=== PATIENT | female | born 1990 | race Caucasian/White ===

== ENCOUNTER 2016-12-05 23:58 | Emergency (ER) | payer OTHER ==
[~2016-12-05] VITALS: Ht 165.1 cm; Wt 127.0 kg
[2016-12-06 00:07] VITALS: BP 133/94
[2016-12-06] MEDS ORDERED: Metoclopramide 10mg/2ml Inj IVP ONE (00:30)
[2016-12-06] MEDS ORDERED: Ketorolac 30mg Inj IV ONE (00:30)
[2016-12-06] MEDS ORDERED: DiphenhydrAMINE 50mg/ml Inj IVP ONE (00:30)
[2016-12-06] MEDS ORDERED: ANAPROX DS550 MG PO (01:20)
--- NOTE | 2016-12-06 01:20 | Emergency Room Report ---
History of Present Illness General Chief Complaint: Headache Source: Patient Present Illness HPI Is a 26-year-old female with a history headache/migraine. She get them about once or twice a week. Her Dr. gave her medicine but she stopped taking them. Denies any fever chills denies any nausea vomiting. This pain came on tonight. Pain is 10 out of 10. She normally get any scotoma with it. Lights bother her. Sounds bilaterally. This one is in the same location but more severe. Gradual onset. Pain is 10 out of 10. Has not take anything for it. Allergies: Coded Allergies: No Known Allergies (Unverified , 12/06/16) Patient History Past Medical History: see triage record, old chart reviewed Past Surgical History: none Pertinent Family History: none Social History: Denies: smoking Last Menstrual Period: 1 year ago Now: No Immunizations: other Reviewed Nursing Documentation: PMH: Agreed, PSxH: Agreed Review of Systems Eye: Denies: blurred vision, eye pain ENT: Denies: ear pain, nose congestion, throat swelling Respiratory: Denies: cough, shortness of breath Cardiovascular: Denies: chest pain, palpitations Gastrointestinal: Denies: abdominal pain, diarrhea, nausea, vomiting Musculoskeletal: Denies: back pain, joint pain Skin: Denies: rash Neurological: Reports: headache, Denies: numbness Endocrine: Denies: increased thirst, increased urine Hematologic/Lymphatic: Denies: easy bruising All Other Systems: negative except mentioned in HPI Physical Exam Vital Signs Date Time Temp Pulse Resp B/P Pulse Ox O2 Delivery O2 Flow Rate FiO2 12/06/16 00:00 98.2 94 18 133/94 95 Room Air vitals normal Sp02 EP Interpretation: reviewed, normal General Appearance: well appearing, no apparent distress, alert Head: normocephalic, atraumatic Eyes: bilateral eye EOMI, bilateral eye PERRL ENT: hearing grossly normal, normal pharynx Neck: full range of motion, supple, no meningismus Respiratory: chest non-tender, lungs clear, normal breath sounds Cardiovascular #1: regular rate, rhythm, no murmur Gastrointestinal: normal bowel sounds, non tender, no mass, no organomegaly, no bruit, non-distended Musculoskeletal: back normal, gait/station normal, normal range of motion Psychiatric: mood/affect normal Skin: warm/dry Medical Decision Making Diagnostic Impression: Primary Impression: Headache Qualified Codes: R51 - Headache ER Course Patient presents with headache. Most likely migraine. No evidence of bleed or meningitis. We'll discharge home. I recommend followup with a neurologist for migraine specialist. Last Vital Signs Date Time Temp Pulse Resp B/P Pulse Ox O2 Delivery O2 Flow Rate FiO2 12/06/16 01:03 98.2 12/06/16 00:07 18 133/94 95 Room Air 12/06/16 00:00 94 Status: improved Disposition: HOME, SELF-CARE Condition: Stable Scripts Naproxen Sodium (ANAPROX DS) 550 Mg Tablet 550 MG PO BID, #30 TAB Prov: TG ESTEVEZ M.D. 12/06/16 Referrals: NOT CHOSEN [facility]/,REFERRING (PCP) Patient Instructions: Migraine Headache Additional Instructions: followup with your DrHoracio in 2-3 days. Return if worse. TG ESTEVEZ M.D. Dec 06, 2016 01:20
[2016-12-06 01:45] VITALS: BP 137/90
== END 2016-12-06 01:45 | disposition home or self-care (01) ==
LOC: EMR 12-06 00:41
DX: R51 Headache (principal)
CPT/HCPCS: 96374; 96375; 99284; J1200; J1885; J2765

== ENCOUNTER 2018-08-21 22:57 | Emergency (ER) | payer MEDICAID, OTHER ==
[~2018-08-21] VITALS: Ht 165.1 cm; Wt 136.5 kg
[~2018-08-21 22:57] MED LIST: ANAPROX DS550 MG PO
[2018-08-21] MEDS ORDERED: NKM (23:01)
--- NOTE | 2018-08-21 23:04 | NUR ---
ED Nurse Note: pt walked in c/o left lower back pain radiating to left leg and pelvic area, pt states pain is sharp, 10/10, started about 30min ago. pt reports +nausea, had 1 vomiting episode in ED. No blood in emesis noted. ERMD notified regarding pt's condition. pt AA&ox4, gcs=15, skin warm and dry, resp even and unlabored on RA, airway intact, +n/v/d, active BS, vss, will cont monitor.
[2018-08-21 23:17] VITALS: BP 133/63
--- NOTE | 2018-08-21 23:27 | Emergency Room Report ---
History of Present Illness General Chief Complaint: Pain Source: Patient Present Illness HPI Is a 28-year-old female with no significant past medical history. She presents with chief complaint of left lower back pain. Onset was acute and occurred about an hour ago. She was in bed and she stretched she felt sharp pain. No radiation. Worse with palpation. Pain is 9 out of 10. Has nausea and vomiting. No diarrhea. No fever or chills. Pain is sharp. No hematuria. Allergies: Coded Allergies: No Known Allergies (Unverified , 12/06/16) Patient History Past Medical History: none, see triage record, old chart reviewed Past Surgical History: none Pertinent Family History: none Social History: Denies: smoking Last Menstrual Period: currently on it Now: No Immunizations: other Reviewed Nursing Documentation: PMH: Agreed; PSxH: Agreed Nursing Documentation-PMH Past Medical History: No History, Except For Review of Systems Eye: Denies: eye pain, blurred vision ENT: Denies: ear pain, nose congestion, throat swelling Respiratory: Denies: cough, shortness of breath Cardiovascular: Denies: chest pain, palpitations Gastrointestinal: Denies: abdominal pain, diarrhea, nausea, vomiting Musculoskeletal: Reports: back pain; Denies: joint pain Skin: Denies: rash Neurological: Denies: headache, numbness Endocrine: Denies: increased thirst, increased urine Hematologic/Lymphatic: Denies: easy bruising All Other Systems: negative except mentioned in HPI Physical Exam Vital Signs Date Time Temp Pulse Resp B/P (MAP) Pulse Ox O2 Delivery O2 Flow Rate FiO2 08/21/18 22:58 99.0 99 18 122/63 97 Room Air vitals normal Sp02 EP Interpretation: reviewed, normal General Appearance: well appearing, no apparent distress, alert, obese Head: normocephalic, atraumatic Eyes: bilateral eye PERRL, bilateral eye EOMI ENT: hearing grossly normal, normal pharynx Neck: full range of motion, supple, no meningismus Respiratory: chest non-tender, lungs clear, normal breath sounds Cardiovascular #1: regular rate, rhythm, no murmur Gastrointestinal: normal bowel sounds, non tender, no mass, no organomegaly, no bruit, non-distended Musculoskeletal: back normal - Tenderness to left flank, lower lumbar area, gait/station normal, normal range of motion Psychiatric: mood/affect normal Skin: warm/dry Medical Decision Making Diagnostic Impression: Primary Impression: Back pain Qualified Codes: M54.5 - Low back pain Additional Impression: Pelvic mass in female ER Course Sent with back pain. No evidence of cauda equina syndrome, spinal after abscess or neoplastic process. She does have a large pelvic/abdominal mass. This may be a fibroid uterus. Patient said that her menstrual flow is very heavy and prolonged period. There is no abnormal weight loss. We'll discharge home with gynecology follow-up for further workup. CT/MRI/US Diagnostic Results CT/MRI/US Diagnostic Results : Imaging Test Ordered: CT abdomen and pelvis Impression read by radiologist. Large abdominal/pelvic mass. Measured 23 cm x 24 cm x 15 cm. Last Vital Signs Date Time Temp Pulse Resp B/P (MAP) Pulse Ox O2 Delivery O2 Flow Rate FiO2 08/21/18 23:17 99.0 91 18 133/63 99 Room Air Status: improved Disposition: HOME, SELF-CARE Condition: Stable Scripts Diazepam* (VALIUM*) 10 Mg Tablet 10 MG ORAL TID PRN for spasm, #20 TAB 0 Refills Prov: Angel Eng MD 08/22/18 Ibuprofen* (MOTRIN*) 600 Mg Tablet 600 MG ORAL THREE TIMES A DAY, #30 TAB 0 Refills Prov: Angel Eng MD 08/22/18 Hydrocodone/Acetaminophen 5-325* (HYDROCODONE/ACETAMINOPHEN 5-325*) 1 Each Tablet 1 TAB ORAL Q6H PRN for For Pain, #20 TAB 0 Refills Prov: Angel Eng MD 08/22/18 Additional Instructions: Follow-up with your doctor in 7 days. You will need a referral to see a full time paramedic. You have a large pelvic mass. this will need further workup. Return if symptom worsen. Angel Eng MD Aug 21, 2018 23:27
[2018-08-21] MEDS ORDERED: HYDROmorphone 1mg/ml Carpuject IVP ONE (23:30)
[2018-08-21 23:53] LABS: APPEARANCE,URINE CLEAR; BILIRUBIN, URINE NEGATIVE (NEGATIVE); COLOR,URINE PALE YELLOW; GLUCOSE, URINE (UA) NEGATIVE (NEGATIVE); KETONES,URINE NEGATIVE (NEGATIVE); LEUKOCYTE ESTERASE ,URINE 1+ (NEGATIVE); NITRITE,URINE NEGATIVE (NEGATIVE); PH,URINE 6 (4.5-8.0); PROTEIN,URINE 2+ (NEGATIVE); UROBILINOGEN,URINE NORMAL MG/DL (0.0-1.0)
[2018-08-22] MEDS ORDERED: IBUPROFEN600 MG ORAL (00:59)
[2018-08-22] MEDS ORDERED: HYDROCODON-ACE1 EA15 ORAL (00:59)
[2018-08-22] MEDS ORDERED: VALIUM10 MG ORAL (00:59)
--- NOTE | 2018-08-22 01:11 | NUR ---
ED Nurse Note: pt cleared to be d/c per ERMD, pt discharge and aftercare instruction provided w/ prescription, pt education done via discussion and handout, pt advised to follow up with pcp or return to ed if sx worsen or new sx develop, pt verbalized understanding and agrees with plan, vss, ambulatory w/ steady gait, left w/ all belongings. iv d/c and ID band removed. pt was accompanied by mother.
[2018-08-22 01:15] VITALS: BP 123/81
--- NOTE | 2018-08-22 09:24 | Diagnostic Imaging Report ---
Indication: Abdominal pain for one day Technique: Spiral acquisitions obtained through the abdomen and pelvis. No oral contrast utilized, per emergency room physician request No IV contrast utilized, per emergency room physician request.. Multiplanar reconstructions were generated. Total dose length product 1110.89 mGycm. CTDIvol(s) 19.51 mGy. Dose reduction achieved using automated exposure control Comparison: None Findings: There is a very large unilocular cyst in the pelvic and lower abdominal midline. This measures 23.4 cm transverse by 14.6 cm AP by 24 cm craniocaudad. This appears to be related to both adnexa . However, it displaces the uterus to the left, indicating most likely right ovarian origin the uterus is normal, contains an intrauterine device. Lack of IV contrast limits assessment of the solid organs. The liver, gallbladder, bile ducts, pancreas, spleen, adrenals, kidneys are all unremarkable. No retroperitoneal or mesenteric mass or adenopathy. Unremarkable bladder. Lack of enteric contrast limits assessment of the GI tract. There are sigmoid diverticula. The appendix is not definitely visualized. No findings to suggest acute appendicitis are evident. No small bowel distention. No free or loculated intraperitoneal gas or fluid is evident. The included lung bases are clear. The bones are unremarkable. Impression: 23.4 x 14.6 x 24 cm unilocular cystic mass in the pelvis, presumably a cyst of ovarian, probably right ovarian, origin. Suspicious for neoplastic etiology, given large size. Gynecological evaluation is recommended Intrauterine device in place Sigmoid diverticulosis. This agrees with the preliminary interpretation provided overnight by [facility], with minor variation. The CT scanner at [facility] is accredited by the [employer] and the scans are performed using protocols designed to limit radiation exposure to as low as reasonably achievable to attain images of sufficient resolution adequate for diagnostic evaluation.
== END 2018-08-22 01:16 | disposition home or self-care (01) ==
LOC: EMR 23:30
DX: M54.5 Low back pain (principal); R19.00 Intra-abdominal and pelvic swelling, mass and lump, unspecified site; K57.90 Diverticulosis of intestine, part unspecified, without perforation or abscess without bleeding; Z97.5 Presence of (intrauterine) contraceptive device
CPT/HCPCS: 74176; 81003; 81025; 87086; 96374; 96375; 99284; J1170; J2405

== ENCOUNTER 2020-03-27 23:57 | Emergency (ER) | payer MEDICAID ==
[~2020-03-27] VITALS: Ht 165.1 cm; Wt 104.3 kg
[~2020-03-27 23:57] MED LIST changes: +HYDROCODON-ACE1 EA15 ORAL; +IBUPROFEN600 MG ORAL; +NKM; +VALIUM10 MG ORAL
--- NOTE | 2020-03-28 00:40 | NUR ---
ED Nurse Note: Recieved pt wak in from home, here with c/o severe 9/10 back pain x 1 week, pt has hx of ovarian cancer, not currently under treatment, pt also states she has to defecate each time she urinates with pain, denies injury to area or fall, no cp, sob, or labored breathing, pt crying due to pain.
[2020-03-28] MEDS ORDERED: cefTRIAXone 2 GM in NS 110 ML IV ONE (00:45)
[2020-03-28] MEDS ORDERED: Gadavist 7.5mMol/7.5ml vial IV PRN ×2 (00:45)
[2020-03-28] MEDS ORDERED: Methocarbamol 750mg tab ORAL ONE (01:00)
[2020-03-28] MEDS ORDERED: DiphenhydrAMINE 50mg/ml Inj IVP ONE ×2 (01:45→03:00)
[2020-03-28] MEDS ORDERED: Solu-MEDROL 125mg Inj IVP ONE ×2 (01:45→03:00)
[2020-03-28 01:57] LABS: BASOPHILS % (AUTO) 1.2 % (0.0-2.0); EOSINOPHILS % (AUTO) 4.8 % (0.0-3.0); HEMATOCRIT 44.6 % (37.0-47.0); HEMOGLOBIN 14.4 G/DL (12.0-16.0); LYMPHOCYTES % (AUTO) 37.8 % (20.0-45.0); MEAN CORPUSCULAR VOLUME 94 FL (80-99); MONOCYTES % (AUTO) 6.4 % (1.0-10.0); NEUTROPHILS % (AUTO) 49.8 % (45.0-75.0); PLATELET COUNT 345 K/UL (150-450); RED BLOOD COUNT 4.75 M/UL (4.20-5.40); RED CELL DISTRIBUTION WIDTH 11.9 % (11.6-14.8); WHITE BLOOD COUNT 8.7 K/UL (4.8-10.8)
[2020-03-28 02:09] LABS: ANION GAP 5 mmol/L (5-15); BLOOD UREA NITROGEN 15 mg/dL (7-18); CARBON DIOXIDE 28 MMOL/L (21-32); CHLORIDE 106 MMOL/L (98-107); CREATININE 0.9 MG/DL (0.55-1.30); INR 0.9 (0.9-1.1); SODIUM 139 MMOL/L (136-145)
[2020-03-28 02:14] LABS: ALANINE AMINOTRANSFERASE 34 U/L (12-78); ALBUMIN 3.6 G/DL (3.4-5.0); ALBUMIN/GLOBULIN RATIO 0.8 (1.0-2.7); ALKALINE PHOSPHATASE 126 U/L (46-116); ASPARTATE AMINO TRANSFERASE 15 U/L (15-37); BILIRUBIN,TOTAL 0.3 MG/DL (0.2-1.0)
--- NOTE | 2020-03-28 02:20 | NUR ---
ED Nurse Note: Pt being taken to imaging via [facility], pt remains with pain and states meds given not effective, pt is crying, informed, no new med orders recieved, med orders cancelled due to pt not recieving IV contrast, will monitor pt status on return.
--- NOTE | 2020-03-28 02:31 | Emergency Room Report ---
History of Present Illness General Chief Complaint: Lower Back Pain or Injury Source: Patient Present Illness HPI 30F PMHx of primary ovarian CA s/p resection c/o low back pain x 3 days. States pain "shoots up her back" when she is at work and on her feet all day. 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 Resting makes the pain better, standing makes the pain worse. It is characterized as sharp and radiates to LLE > RLE. Denies fever, chills, trauma, IVDU, inadvertant weight loss, CP, SOB. She states when the pain gets bad it feels like her muscle "on both sides" are tensing up and she has to use to the bathroom. Denies urinary retention or saddle anesthesia, focal weakness, numbness. She had one episode of this previously and it ended up being a pelvic mass. (Oncologist is Dr Bowser) The patient's symptoms were gradual onset, severity was moderate, duration since 3 days. Quality: sharp Past medical history: ovarian CA Past surgical history: Ovarian resection in 2018 Smoking: Denies Alcohol use: Denies Drug use: Denies Review of systems: CONST: No fevers or chills, No night sweats PULMONARY: No productive cough, No shortness of breath CARDIAC: No chest pain, No palpitations GI: No vomiting, No diarrhea , No melena_or_BRBPR : No dysuria, No hematuria, No discharge NEURO: No new_focal_weakness_or_numbness, No confusion, No vision changes 14 point Review of Systems is otherwise negative except per HPI Physical Exam: GENERAL: Awake_alert_ nontoxic, no acute distress Spo2 98% on RA -normal. Obese EYES: Extraocular muscles are intact. Conjunctivae clear. Lids without swelling ENT: External nose and ear normal_in_appearance. Oropharynx clear. Head_atraumatic, Moist_oral_mucosa NECK: No JVD. No meningismus. No thyromegaly. Supple. Trachea midline. No midline C/T/L spine step offs or deformity. RESP: Normal respiratory effort. Symmetric rise. No stridor. Clear_to_auscultation_No_rales_No_wheezes CARDIAC: Regular rate and regular rhytm. No_significant pedal edema. ABDOMEN: Soft. Nondistended. Nontender_No_rebound_or_guarding. RECTAL: chaperoned by mando Coppola. Good rectal tone. No gross blood. No hemorrhoids. MSK: ++paraspinal lumbar hypertonicity. FROM T/L spine Normal muscle tone, without rigidity. Extremities without asymmetric deformity or swelling. SKIN: Warm and dry. No visible cyanosis or pallor NEUROLOGIC: Alert, oriented x3. Motor_and_sensation_grossly_intact. No truncal ataxia. Gait_normal No saddle anesthesia Psych: Normal mood and affect, normal judgment and insight - COORDINATION OF CARE Case was discussed with: Patient Any labs and imaging that were ordered were interpreted as part of the medical decision making: Medical Decision Making/Plan: Differential diagnosis includes musculoskeletal pain, muscle spasm / sprain, vertebral fracture, spinal epidural abscess, spinal epidural hematoma, pyelonephritis, kidney stone, AAA, among others. Vitals are unremarkable. Pt is afebrile On exam, pulses are equal and symmetric bilaterally. No focal neurologic deficits noted. No midline spinal step offs or deformities appreciated. Patient had stated that when the pain tenses up, she feels like she loses control of her bowels. Due to this, MRI of the T and L spine were ordered. Patient, however, exceeded the maximum girth allowed for MRI due to her girth. CT abd/pelvis with T/L recon were negative for spinal pathology or space occupying lesion. Labs showed minimally elevated ESR/CRP otherwise were WNL. Pt received robaxin in ED with mild relief of symptoms. She refused narcotics. Patient was offered transfer to a facility with larger MRI ([facility] or [facility]) but she is declining at this time. She was educated on the risks of foregoing the optimal study (MRI) and the benefits of getting it to obtain the definitive diagnosis. She states that she will return for any worsening pain. The patient has no significant risk factors for AAA (abdominal aortic aneurysm) such as age over 50 with history of hypertension, connective tissue disorder, or 1st degree relative with AAA. In addition, the patient has normal dorsalis pedis pulses, and no pulsatile mass felt on exam. The patients profile was overall low risk for AAA and definitive workup was not pursued. No mechanism for significant trauma. Patient has no vertebral deformity or midline tenderness and has a normal gait. Rectal exam had normal tone. Patient has no significant risk factors for spinal epidural emergency such as fever, IVDU, HIV, or anticoagulant use. Patient is neurologically intact without any lower extremity weakness / numbness, saddle anesthesia. The patient decided to leave AGAINST MEDICAL ADVICE. They understand the risks, benefits, and alternatives of continued treatment versus leaving. They understand the risks including but not limited to: worsening condition, missed diagnosis, permanent disability, and even associated with lack of potential further testing, monitoring, and treatments. The patient has capacity to make this decision in my opinion. The patient was encouraged to follow up with their primary care provider as soon as possible and to return immediately if they change their mind or if symptoms worsen or for any other concerns. RN was present for the discussion. All patient questions were answered. Will DC with lidocaine patch and robaxin. Patient was counseled not to drive or combine with alcohol. Off work note given x 3 days. Allergies: Coded Allergies: No Known Allergies (Unverified , 12/06/16) COVID-19 Screening Contact w/high risk pt: No Experienced COVID-19 symptoms?: No COVID-19 Testing performed [employer]: No Physical Exam Vital Signs Date Time Temp Pulse Resp B/P (MAP) Pulse Ox O2 Delivery O2 Flow Rate FiO2 03/28/20 00:07 98.4 90 18 129/92 (104) 98 Room Air Sp02 EP Interpretation: reviewed Medical Decision Making Diagnostic Impression: Primary Impression: Low back pain CT/MRI/US Diagnostic Results CT/MRI/US Diagnostic Results : Impression CT Abdomen and Pelvis With Intravenous Contrast FINDINGS: Lung bases: Unremarkable. No mass. No consolidation. ABDOMEN: Liver: Hepatic steatosis and possible steatohepatitis; consider outpatient MR or ultrasound elastography to quantify hepatic fibrosis. Gallbladder and bile ducts: Unremarkable. No calcified stones. No ductal dilation. Pancreas: Unremarkable. No mass. No ductal dilation. Spleen: Unremarkable. No splenomegaly. Adrenals: Unremarkable. No mass. Kidneys and ureters: Unremarkable. No solid mass. No hydronephrosis. Stomach and bowel: Colonic diverticulosis without acute diverticulitis. No obstruction. PELVIS: Appendix: No findings to suggest acute appendicitis. Bladder: Unremarkable. No mass. Reproductive: IUD in the uterus. ABDOMEN and PELVIS: Intraperitoneal space: Unremarkable. No free air. No significant fluid collection. Bones/joints: No acute fracture. No dislocation. Soft tissues: Unremarkable. Vasculature: Unremarkable. No abdominal aortic aneurysm. Lymph nodes: Unremarkable. No enlarged lymph nodes. IMPRESSION: 1. No acute abnormality definitively identified to account for patient presentation. 2. Hepatic steatosis and possible steatohepatitis; consider outpatient MR or ultrasound elastography to quantify hepatic fibrosis. 3. IUD in the uterus. 4. Colonic diverticulosis without acute diverticulitis. 5. Otherwise unremarkable study. EXAM: CT Chest With Intravenous Contrast FINDINGS: Lungs: Unremarkable. No mass. No consolidation. Pleural space: Unremarkable. No pneumothorax. No significant effusion. Heart: Unremarkable. No cardiomegaly. No significant pericardial effusion. Bones/joints: Unremarkable. No acute fracture. No dislocation. Soft tissues: Unremarkable. Vasculature: Unremarkable. No thoracic aortic aneurysm. Lymph nodes: Unremarkable. No enlarged lymph nodes. Other findings: No acute abnormality definitively identified to account for patient presentation. IMPRESSION: 1. No acute abnormality definitively identified to account for patient presentation. 2. Unremarkable study. Dictated By: Colby Brock MD Reevaluation Time: 05:00 Last Vital Signs Date Time Temp Pulse Resp B/P (MAP) Pulse Ox O2 Delivery O2 Flow Rate FiO2 03/28/20 00:07 98.4 90 18 129/92 (104) 98 Room Air Status: improved Disposition: AGAINST MEDICAL ADVICE Admit Decision Time: 05:00 Condition: Unknown Scripts Naproxen* (NAPROXEN*) 500 Mg Tablet.dr 500 MG ORAL TWICE A DAY for 7 Days, #14 TAB Prov: Megan Solorzano D.O. 03/28/20 Methocarbamol* (ROBAXIN-750*) 750 Mg Tablet 750 MG PO TID, #21 TAB 0 Refills Prov: Megan Solorzano D.O. 03/28/20 Lidocaine Patch* (Lidoderm Patch*) 1 Each Adh..patch 1 PATCH TOPIC DAILY, #7 PATCH 0 Refills Patch(es) may remain in place for up to 12 hours in any 24-hour period. Prov: Megan Solorzano D.O. 03/28/20 Referrals: [facility],REFERRING (PCP) Megan Solorzano D.O. Mar 28, 2020 02:31
[2020-03-28] MEDS ORDERED: Omnipaque-300 100ml vial INJ ONE (02:45)
[2020-03-28] MEDS ORDERED: Omnipaque-300 100ml vial INJ PRN (02:45)
--- NOTE | 2020-03-28 03:35 | NUR ---
ED Nurse Note: Pt returned from imaging, all scans completed, pt tolerated poorly and crying due to pain, pt placed back to chair, no cp or sob or any changes per pt but continues with severe pain, md informed, will continue to monitor while waiting for disposition.
[2020-03-28 03:45] VITALS: BP 141/96
--- NOTE | 2020-03-28 04:10 | Diagnostic Imaging Report ---
EXAM: CT Abdomen and Pelvis With Intravenous Contrast CLINICAL HISTORY: BK PAIN TECHNIQUE: Axial computed tomography images of the abdomen and pelvis with intravenous contrast. CTDI is 142.40 mGy and DLP is 3006.80 mGy-cm. One or more of the following dose reduction techniques were used: automated exposure control, adjustment of the mA and/or kV according to patient size, use of iterative reconstruction technique. Coronal and sagittal reformatted images were created and reviewed. COMPARISON: 08/21/18 FINDINGS: Lung bases: Unremarkable. No mass. No consolidation. ABDOMEN: Liver: Hepatic steatosis and possible steatohepatitis; consider outpatient MR or ultrasound elastography to quantify hepatic fibrosis. Gallbladder and bile ducts: Unremarkable. No calcified stones. No ductal dilation. Pancreas: Unremarkable. No mass. No ductal dilation. Spleen: Unremarkable. No splenomegaly. Adrenals: Unremarkable. No mass. Kidneys and ureters: Unremarkable. No solid mass. No hydronephrosis. Stomach and bowel: Colonic diverticulosis without acute diverticulitis. No obstruction. PELVIS: Appendix: No findings to suggest acute appendicitis. Bladder: Unremarkable. No mass. Reproductive: IUD in the uterus. ABDOMEN and PELVIS: Intraperitoneal space: Unremarkable. No free air. No significant fluid collection. Bones/joints: No acute fracture. No dislocation. Soft tissues: Unremarkable. Vasculature: Unremarkable. No abdominal aortic aneurysm. Lymph nodes: Unremarkable. No enlarged lymph nodes. IMPRESSION: 1. No acute abnormality definitively identified to account for patient presentation. 2. Hepatic steatosis and possible steatohepatitis; consider outpatient MR or ultrasound elastography to quantify hepatic fibrosis. 3. IUD in the uterus. 4. Colonic diverticulosis without acute diverticulitis. 5. Otherwise unremarkable study. EXAM: CT Chest With Intravenous Contrast CLINICAL HISTORY: BK PAIN TECHNIQUE: Axial computed tomography images of the chest with intravenous contrast. CTDI is 142.40 mGy and DLP is 3006.80 mGy-cm. One or more of the following dose reduction techniques were used: automated exposure control, adjustment of the mA and/or kV according to patient size, use of iterative reconstruction technique. Coronal and sagittal reformatted images were created and reviewed. COMPARISON: 08/21/18 FINDINGS: Lungs: Unremarkable. No mass. No consolidation. Pleural space: Unremarkable. No pneumothorax. No significant effusion. Heart: Unremarkable. No cardiomegaly. No significant pericardial effusion. Bones/joints: Unremarkable. No acute fracture. No dislocation. Soft tissues: Unremarkable. Vasculature: Unremarkable. No thoracic aortic aneurysm. Lymph nodes: Unremarkable. No enlarged lymph nodes. Other findings: No acute abnormality definitively identified to account for patient presentation. IMPRESSION: 1. No acute abnormality definitively identified to account for patient presentation. 2. Unremarkable study.
--- NOTE | 2020-03-28 04:30 | NUR ---
ED Nurse Note: performed bedside rectal exam with suri-emt to assist. pt c/o back pain still, md aware. no new med orders given.
[2020-03-28 04:45] VITALS: BP 141/96
[2020-03-28] MEDS ORDERED: NAPROXEN500 M1 ORAL (04:52)
[2020-03-28] MEDS ORDERED: LIDODERM700 M1 TOPIC (04:52)
[2020-03-28] MEDS ORDERED: ROBAXIN-750750 MG PO (04:52)
--- NOTE | 2020-03-28 04:55 | NUR ---
AMA: SEE AMA FORM. pt d/c by césar eric.
== END 2020-03-28 04:45 | disposition left against medical advice (07) ==
LOC: EMR 03-28 00:14
DX: M54.5 Low back pain (principal); Z53.29 Procedure and treatment not carried out because of patient's decision for other reasons; Z85.43 Personal history of malignant neoplasm of ovary
CPT/HCPCS: 36415; 71260; 74177; 80053; 83605; 84484; 84702; 85025; 85610; 85651; 85730; 86140; 87040; 96365; 96375; J0696; J1200; J2930; Q9965; S0028; Z7502; 99284